=== PATIENT | male | born 1995 | race Caucasian/White ===

== ENCOUNTER 2017-11-21 21:08 | Inpatient (IN) | payer BC, OTHER ==
[~2017-11-21] VITALS: Ht 185.4 cm; Wt 74.8 kg
[2017-11-21] MEDS ORDERED: DICYCLOMINE HCL 20 MG TABLET PO PRN (22:15)
[2017-11-21] MEDS ORDERED: MAG HYDROX/AL HYDROX/SIMETH 30 ML LIQUID UDC PO PRN (22:15)
[2017-11-21] MEDS ORDERED: DIAZEPAM 5 MG TABLET PO PRN (22:15)
[2017-11-21] MEDS ORDERED: ONDANSETRON 4 MG/2 ML VIAL IM PRN (22:15)
[2017-11-21] MEDS ORDERED: diphenhydrAMINE 50 MG CAPSULE PO PRN (22:15)
[2017-11-21] MEDS ORDERED: LORAZEPAM 2 MG/1 ML VIAL IM PRN (22:15)
[2017-11-21] MEDS ORDERED: LOPERAMIDE HCL 2 MG CAPSULE PO PRN ×2 (22:15)
[2017-11-21] MEDS ORDERED: MAGNESIUM HYDROXIDE 30 ML LIQUID UDC PO PRN (22:15)
[2017-11-21] MEDS ORDERED: DIAZEPAM 10 MG TABLET PO PRN (22:15)
[2017-11-21] MEDS ORDERED: MIRALAX 17 GM POWD.PACK PO PRN (22:15)
[2017-11-21] MEDS ORDERED: THIAMINE HCL 200 MG/2 ML VIAL IM ONE (22:15)
[2017-11-21] MEDS ORDERED: ONDANSETRON ODT 4 MG TAB.RAPDIS SL PRN (22:15)
[2017-11-21 22:30] VITALS: BP 120/64
[2017-11-21 22:56] VITALS: BP 127/76
[2017-11-21 23:19] LABS: *AMPHETAMINE, URINE NEGATIVE (NEGATIVE); *BARBITURATE, URINE NEGATIVE (NEGATIVE); *CANNABINOID, URINE POSITIVE (NEGATIVE); *COCCAINE, URINE NEGATIVE (NEGATIVE); *OPIATE, URINE NEGATIVE (NEGATIVE); *PHENCYCLIDINE SCREEN,URINE NEGATIVE (NEGATIVE)
[2017-11-21] MEDS ORDERED: PHENOBARBITAL 60 MG TABLET PO SCH (23:30)
[2017-11-22 00:42] VITALS: BP 108/56
[2017-11-22] MEDS ORDERED: QUET100T PO (02:53)
[2017-11-22] MEDS ORDERED: GABA600T2 PO (02:53)
[2017-11-22] MEDS ORDERED: BUPR150T5 PO (02:53)
[2017-11-22 04:28] VITALS: BP 103/54
[2017-11-22 07:43] LABS: BASOPHILS % (AUTO) 0.6 % (0.0-2.0); EOSINOPHILS # (AUTO) 0.2 K/uL (0.0-0.7); HEMATOCRIT 42.1 % (36.7-47.1); HEMOGLOBIN 14.6 g/dL (12.5-16.3); LYMPHOCYTES # (AUTO) 2.8 K/uL (20.0-40.0); LYMPHOCYTES % (AUTO) 37.2 % (20.5-51.5); MEAN CORPUSCULAR HEMOGLOBIN 29.7 uug (23.8-33.4); MEAN CORPUSCULAR HGB CONC 35 g/dL (32.5-36.3); MEAN CORPUSCULAR VOLUME 85.4 fL (73.0-96.2); MONOCYTES # (AUTO) 0.8 K/uL (2.0-10.0); NEUTROPHILS # (AUTO) 3.8 K/uL (1.8-8.9); NEUTROPHILS % (AUTO) 50.2 % (38.5-71.5); PLATELET COUNT (AUTO) 170 K/uL (152-348); RED BLOOD CELL COUNT(AUTO) 4.92 MIL/uL (4.06-5.63); WHITE BLOOD COUNT (AUTO) 7.5 K/uL (3.6-10.2)
[2017-11-22 08:00] VITALS: BP 113/63
[2017-11-22 08:03] LABS: ALANINE AMINOTRANSFERASE 10 U/L (16-63); ALKALINE PHOSPHATASE 86 U/L (50-136); ASPARTATE AMINOTRANSFERASE < 5 U/L (15-37); BILIRUBIN,TOTAL 0.3 mg/dL (0.2-1.0); CARBON DIOXIDE 31 mmol/L (21-32); CHLORIDE 103 mmol/L (98-107); CREATININE 1.1 mg/dL (0.6-1.3); GLUCOSE 136 mg/dL (74-106); TOTAL PROTEIN, SERUM 6.4 g/dL (6.4-8.2); UREA NITROGEN, BLOOD 12 mg/dL (7-18)
[2017-11-22] MEDS: PHENOBARBITAL 60 MG TABLET PO SCH ×4 (08:23→21:04)
[2017-11-22] MEDS: METHOCARBAMOL 750 MG TABLET PO PRN ×2 (08:30→21:04)
[2017-11-22] MEDS: DIAZEPAM 10 MG TABLET PO PRN ×3 (08:31→18:02)
[2017-11-22] MEDS ORDERED: GABAPENTIN 300 MG CAPSULE PO SCH (09:00)
[2017-11-22] MEDS ORDERED: TUBERCULIN,PURIF.PROT.DERIV. 5 TU/0.1 ML TEST ID ONE (09:00)
[2017-11-22 09:16] LABS: ETHANOL < 3 MG/DL (0-0)
[2017-11-22] MEDS ORDERED: POTASSIUM CHLORIDE 20 MEQ TAB.PRT.SR PO ONE (09:45)
[2017-11-22 12:00] VITALS: BP 125/75
[2017-11-22] MEDS: buPROPion SR 150 MG TABLET.SA PO SCH (12:10)
[2017-11-22] MEDS: IBUPROFEN 600 MG TABLET PO PRN (13:06)
[2017-11-22] MEDS: GABAPENTIN 300 MG CAPSULE PO SCH ×2 (14:57→21:04)
[2017-11-22 16:30] VITALS: BP 100/52
[2017-11-22 20:00] VITALS: BP 116/58
[2017-11-22] MEDS: QUETIAPINE FUMARATE 100 MG TABLET PO SCH (21:04)
[2017-11-23 08:00] VITALS: BP 92/50
[2017-11-23] MEDS: METHOCARBAMOL 750 MG TABLET PO PRN ×3 (08:20→21:29)
[2017-11-23] MEDS: GABAPENTIN 300 MG CAPSULE PO SCH ×3 (08:20→21:29)
[2017-11-23] MEDS: buPROPion SR 150 MG TABLET.SA PO SCH (08:21)
[2017-11-23] MEDS: PHENOBARBITAL 60 MG TABLET PO SCH ×3 (08:21→21:29)
[2017-11-23] MEDS ORDERED: INFLUENZA VACCINE 2017-2018 0.5 ML DISP.SYRIN IM ONE (08:45)
[2017-11-23] MEDS ORDERED: PNEUMOCOCCAL 23-VAL P-SAC VAC 0.5 ML VIAL IM ONE (08:45)
[2017-11-23] MEDS: DIAZEPAM 10 MG TABLET PO PRN ×3 (10:34→18:30)
[2017-11-23] MEDS: IBUPROFEN 600 MG TABLET PO PRN ×2 (10:34→17:11)
[2017-11-23 12:00] VITALS: BP 118/64
[2017-11-23 16:00] VITALS: BP 127/76
[2017-11-23] MEDS: ACETAMINOPHEN 325 MG TABLET PO PRN (17:11)
[2017-11-23 20:00] VITALS: BP 127/70
[2017-11-23] MEDS: QUETIAPINE FUMARATE 100 MG TABLET PO SCH (21:29)
[2017-11-24 08:00] VITALS: BP 104/61
[2017-11-24] MEDS: METHOCARBAMOL 750 MG TABLET PO PRN ×2 (08:33→20:02)
[2017-11-24] MEDS: buPROPion SR 150 MG TABLET.SA PO SCH (08:33)
[2017-11-24] MEDS: PHENOBARBITAL 60 MG TABLET PO SCH ×4 (08:33→20:02)
[2017-11-24] MEDS: GABAPENTIN 300 MG CAPSULE PO SCH ×3 (08:33→20:02)
[2017-11-24] MEDS: DIAZEPAM 10 MG TABLET PO PRN (08:33)
[2017-11-24 12:00] VITALS: BP 138/84
[2017-11-24 12:08] LABS: HEPATITIS B SURFACE AG Negative (Negative)
[2017-11-24] MEDS: HYDROXYZINE PAMOATE 25 MG CAPSULE PO PRN ×3 (12:41→20:02)
[2017-11-24] MEDS: IBUPROFEN 600 MG TABLET PO PRN (12:41)
[2017-11-24] MEDS: CLONIDINE HCL 0.1 MG TABLET PO PRN ×2 (12:42→20:02)
[2017-11-24] MEDS ORDERED: INFLUENZA VACCINE 2017-2018 0.5 ML DISP.SYRIN IM ONE (13:45)
[2017-11-24] MEDS ORDERED: PNEUMOCOCCAL 23-VAL P-SAC VAC 0.5 ML VIAL IM ONE (13:45)
[2017-11-24 16:30] VITALS: BP 134/76
[2017-11-24 20:00] VITALS: BP 127/80
[2017-11-24] MEDS: QUETIAPINE FUMARATE 100 MG TABLET PO SCH (20:02)
[2017-11-24 20:10] VITALS: BP 135/80
[2017-11-24 21:00] VITALS: BP 127/81
[2017-11-25 08:00] VITALS: BP 118/66
[2017-11-25] MEDS: buPROPion SR 150 MG TABLET.SA PO SCH (08:23)
[2017-11-25] MEDS: METHOCARBAMOL 750 MG TABLET PO PRN ×2 (08:23→16:29)
[2017-11-25] MEDS: IBUPROFEN 600 MG TABLET PO PRN (08:23)
[2017-11-25] MEDS: PHENOBARBITAL 60 MG TABLET PO SCH ×3 (08:23→20:59)
[2017-11-25] MEDS: GABAPENTIN 300 MG CAPSULE PO SCH ×3 (08:23→20:58)
[2017-11-25] MEDS: CLONIDINE HCL 0.1 MG TABLET PO PRN ×2 (08:23→20:59)
[2017-11-25 09:25] LABS: MAGNESIUM 1.8 mg/dL (1.8-2.4); PHOSPHOROUS 3.8 mg/dL (2.5-4.9); POTASSIUM 4.3 mmol/L (3.5-5.1)
[2017-11-25 12:00] VITALS: BP 130/84
[2017-11-25] MEDS: HYDROXYZINE PAMOATE 25 MG CAPSULE PO PRN (12:22)
[2017-11-25 16:00] VITALS: BP 114/77
[2017-11-25] MEDS ORDERED: HYDROXYZINE PAMOATE 25 MG CAPSULE PO SCH ×2 (16:00→21:00)
[2017-11-25] MEDS ORDERED: HYDROXYZINE PAMOATE 25 MG CAPSULE PO PRN (16:15)
[2017-11-25] MEDS ORDERED: HYDROXYZINE PAMOATE 25 MG CAPSULE PO ONE (16:15)
[2017-11-25 20:00] VITALS: BP 125/84
[2017-11-25] MEDS: HYDROXYZINE PAMOATE 25 MG CAPSULE PO SCH (20:58)
[2017-11-25] MEDS: QUETIAPINE FUMARATE 100 MG TABLET PO SCH (20:59)
[2017-11-26] MEDS: HYDROXYZINE PAMOATE 25 MG CAPSULE PO SCH ×4 (03:00→20:58)
[2017-11-26 08:00] VITALS: BP 97/65
[2017-11-26] MEDS: buPROPion SR 150 MG TABLET.SA PO SCH (08:36)
[2017-11-26] MEDS: PHENOBARBITAL 60 MG TABLET PO SCH ×2 (08:36→20:59)
[2017-11-26] MEDS: METHOCARBAMOL 750 MG TABLET PO PRN ×2 (08:36→20:58)
[2017-11-26] MEDS: GABAPENTIN 300 MG CAPSULE PO SCH ×3 (08:37→20:58)
[2017-11-26] MEDS ORDERED: HYDROXYZINE PAMOATE 25 MG CAPSULE PO ONE (12:00)
[2017-11-26] MEDS: CLONIDINE HCL 0.1 MG TABLET PO PRN ×2 (12:05→20:59)
[2017-11-26 12:19] VITALS: BP 130/92
[2017-11-26 16:00] VITALS: BP 124/67
[2017-11-26 20:00] VITALS: BP 135/76
[2017-11-26] MEDS: QUETIAPINE FUMARATE 100 MG TABLET PO SCH (20:57)
[2017-11-27] MEDS: HYDROXYZINE PAMOATE 25 MG CAPSULE PO SCH ×4 (03:00→20:31)
[2017-11-27 08:00] VITALS: BP 97/52
[2017-11-27] MEDS: GABAPENTIN 300 MG CAPSULE PO SCH ×3 (08:50→20:31)
[2017-11-27] MEDS: buPROPion SR 150 MG TABLET.SA PO SCH (08:51)
[2017-11-27 12:00] VITALS: BP 137/70
[2017-11-27] MEDS: ACETAMINOPHEN 325 MG TABLET PO PRN (13:12)
[2017-11-27] MEDS: METHOCARBAMOL 750 MG TABLET PO PRN ×2 (13:12→20:31)
[2017-11-27] MEDS ORDERED: GABA-534 PO (14:47)
[2017-11-27] MEDS ORDERED: IBUP-1955 PO (14:47)
[2017-11-27] MEDS ORDERED: METH-406 PO (14:47)
[2017-11-27] MEDS ORDERED: HYDR-3895 PO (14:47)
[2017-11-27] MEDS ORDERED: BUPR150T10 PO (14:47)
[2017-11-27] MEDS ORDERED: CLON0.1T14 PO (14:47)
[2017-11-27] MEDS ORDERED: QUET100T PO (14:47)
[2017-11-27 16:00] VITALS: BP 118/79
[2017-11-27] MEDS: IBUPROFEN 600 MG TABLET PO PRN ×2 (16:53→20:31)
[2017-11-27 20:00] VITALS: BP 132/78
[2017-11-27] MEDS: QUETIAPINE FUMARATE 100 MG TABLET PO SCH (20:31)
[2017-11-27] MEDS: CLONIDINE HCL 0.1 MG TABLET PO PRN (20:34)
[2017-11-28] MEDS: HYDROXYZINE PAMOATE 25 MG CAPSULE PO SCH ×2 (03:00→08:45)
[2017-11-28 08:00] VITALS: BP 136/77
[2017-11-28] MEDS: METHOCARBAMOL 750 MG TABLET PO PRN (08:44)
[2017-11-28] MEDS: GABAPENTIN 300 MG CAPSULE PO SCH (08:45)
[2017-11-28] MEDS: buPROPion SR 150 MG TABLET.SA PO SCH (08:45)
[2017-11-28 12:00] VITALS: BP 128/77
== END 2017-11-28 13:30 | DRG 895 ==
LOC: SRC 21:43
PROVIDERS: ADMIT Internal Medicine; ATTEND Internal Medicine
PROC: HZ2ZZZZ Detoxification Services for Substance Abuse Treatment (ICD-10-PCS; principal; 2017-11-21)
PROC: HZ31ZZZ Individual Counseling for Substance Abuse Treatment, Behavioral (ICD-10-PCS; 2017-11-24)
PROC: HZ41ZZZ Group Counseling for Substance Abuse Treatment, Behavioral (ICD-10-PCS; 2017-11-24)
DX: F13.232 Sedative, hypnotic or anxiolytic dependence with withdrawal with perceptual disturbance (principal); E87.6 Hypokalemia; F11.10 Opioid abuse, uncomplicated; F12.20 Cannabis dependence, uncomplicated; F15.10 Other stimulant abuse, uncomplicated; Z91.89 Other specified personal risk factors, not elsewhere classified; Z59.0 Homelessness; F90.9 Attention-deficit hyperactivity disorder, unspecified type; F16.10 Hallucinogen abuse, uncomplicated; F17.210 Nicotine dependence, cigarettes, uncomplicated; Z81.1 Family history of alcohol abuse and dependence; Z81.8 Family history of other mental and behavioral disorders; Z59.1 Inadequate housing; G47.00 Insomnia, unspecified; Z79.899 Other long term (current) drug therapy; R73.9 Hyperglycemia, unspecified
CPT/HCPCS: 36415; 70030-TC; 80307; 80346; 80349; 83735; 84100; 85025; 86580; 86592; 86705; 86803; 87340; 87806; 90686; 90732; A4663; G0480; J2405; J8499; Q0162; Q0163

== ENCOUNTER 2017-11-29 | Emergency (ER) | payer BC, OTHER ==
[~2017-11-29] VITALS: Ht 185.4 cm; Wt 79.4 kg
[~2017-11-29] MED LIST: BUPR150T10 PO; CLON0.1T14 PO; GABA-534 PO; HYDR-3895 PO; IBUP-1955 PO; METH-406 PO; QUET100T PO
[2017-11-29] MEDS ORDERED: IV NS 1000 ML 1,000 ML IV ONE (00:15)
--- NOTE | 2017-11-29 00:22 | NUR ---
Client reports chest pain that started at 21:00 radiates to left arm leg through groin. He was admitted for Meth abuse and is in a half way house now. Afraid of the possible withdrawal he may have.
[2017-11-29 00:40] LABS: BASOPHILS % (AUTO) 0.4 % (0.0-2.0); EOSINOPHILS # (AUTO) 0.1 K/uL (0.0-0.7); EOSINOPHILS % (AUTO) 0.6 % (0.0-7.0); HEMATOCRIT 45.2 % (36.7-47.1); HEMOGLOBIN 15.4 g/dL (12.5-16.3); LYMPHOCYTES # (AUTO) 2.4 K/uL (20.0-40.0); LYMPHOCYTES % (AUTO) 21.2 % (20.5-51.5); MEAN CORPUSCULAR HEMOGLOBIN 29.7 uug (23.8-33.4); MEAN CORPUSCULAR HGB CONC 34 g/dL (32.5-36.3); MEAN CORPUSCULAR VOLUME 87.1 fL (73.0-96.2); MONOCYTES # (AUTO) 1.1 K/uL (2.0-10.0); MONOCYTES % (AUTO) 9.9 % (0.0-11.0); NEUTROPHILS # (AUTO) 7.5 K/uL (1.8-8.9); NEUTROPHILS % (AUTO) 67.9 % (38.5-71.5); PLATELET COUNT (AUTO) 180 K/uL (152-348); RED BLOOD CELL COUNT(AUTO) 5.19 MIL/uL (4.06-5.63); WHITE BLOOD COUNT (AUTO) 11.1 K/uL (3.6-10.2)
[2017-11-29 01:02] LABS: BILIRUBIN,TOTAL 0.4 mg/dL (0.2-1.0); POTASSIUM 3.9 mmol/L (3.5-5.1); TOTAL PROTEIN, SERUM 7.6 g/dL (6.4-8.2)
[2017-11-29 01:04] LABS: ETHANOL < 3 MG/DL (0-0)
--- NOTE | 2017-11-29 01:34 | NUR ---
Patient discharged to home in stable conditon. Written and verbal after care instructions given. Patient verbalizes understanding of instructions. Patient ambulated out of ER with steady gait, all belongings taken, VSS, no acute signs of distress.
[2017-11-29 01:36] VITALS: BP 130/83
== END 2017-11-29 01:36 | disposition home or self-care (01) ==
LOC: ER 00:03
DX: R07.89 Other chest pain (principal); R20.0 Anesthesia of skin; F17.210 Nicotine dependence, cigarettes, uncomplicated; F15.10 Other stimulant abuse, uncomplicated; F12.10 Cannabis abuse, uncomplicated; Z79.1 Long term (current) use of non-steroidal anti-inflammatories (NSAID); Z79.899 Other long term (current) drug therapy
CPT/HCPCS: 36415; 70030-TC; 71045; 85025; 93005; A4663; G0480; J7030